=== PATIENT | male | born 2000 | race Two or more races ===

== ENCOUNTER 2021-11-21 20:40 | Emergency (ER) | payer MEDICAID ==
[2021-11-22 02:10] VITALS: BP 135/94
[2021-11-22] MEDS ORDERED: TETANUS-DIPTH-ACEL PERTUSSIS 0.5ML SYR Tdap IM ONE (02:15)
[2021-11-22] MEDS ORDERED: AMOX-277 PO (03:19)
== END 2021-11-22 04:22 | disposition home or self-care (01) ==
LOC: ER 20:40
DX: S91.332A Puncture wound without foreign body, left foot, initial encounter (principal); F12.10 Cannabis abuse, uncomplicated; W22.8XXA Striking against or struck by other objects, initial encounter; Y93.89 Activity, other specified; Y92.89 Other specified places as the place of occurrence of the external cause; Y99.8 Other external cause status
CPT/HCPCS: 73630; 90471; 90715